=== PATIENT | female | born 1980 | race Caucasian/White ===

== ENCOUNTER 2017-03-28 17:43 | Emergency (ER) | payer BC ==
[~2017-03-28] VITALS: Ht 157.5 cm; Wt 90.9 kg
[~2017-03-28 17:43] MED LIST: MOTRIN 200200 MG/TAB PO; PEN-VEE K500 MG PO; TYLENOL EXTRA500 M1 PO
[2017-03-28 17:48] VITALS: TEMP 98.6
[2017-03-28] MEDS ORDERED: ABILIFY5 MG PO (17:50)
[2017-03-28] MEDS ORDERED: PAXIL40 MG PO (17:50)
[2017-03-28] MEDS ORDERED: CEFTIN 250250 MG/TAB PO (17:51)
[2017-03-28] MEDS ORDERED: PREDNISONE20 MG PO (19:30)
[2017-03-28 19:37] VITALS: BP 129/71; PULSE 85
== END 2017-03-28 19:38 | disposition home or self-care (01) ==
LOC: COL.ER 17:43
DX: J20.9 Acute bronchitis, unspecified (principal); R07.89 Other chest pain; F32.9 Major depressive disorder, single episode, unspecified; F41.9 Anxiety disorder, unspecified
CPT/HCPCS: J7512

== ENCOUNTER 2017-04-25 10:11 | Emergency (ER) | payer BC ==
[~2017-04-25] VITALS: Ht 157.5 cm; Wt 90.9 kg
[~2017-04-25 10:11] MED LIST changes: +ABILIFY5 MG PO; +CEFTIN 250250 MG/TAB PO; +PAXIL40 MG PO; +PREDNISONE20 MG PO
[2017-04-25 10:14] VITALS: BP 125/74; PULSE 81; TEMP 98.7
[2017-04-25] MEDS ORDERED: CEPHALEXIN500 M1 PO (10:40)
[2017-04-25] MEDS ORDERED: AMBIEN 10MG10 MG PO (11:06)
== END 2017-04-25 11:10 | disposition home or self-care (01) ==
LOC: COL.ER 10:11
DX: S00.81XA Abrasion of other part of head, initial encounter (principal); D22.39 Melanocytic nevi of other parts of face; X58.XXXA Exposure to other specified factors, initial encounter; F32.9 Major depressive disorder, single episode, unspecified; F41.9 Anxiety disorder, unspecified

== ENCOUNTER 2021-05-12 14:33 | Emergency (ER) | payer SELFPAY ==
[~2021-05-12 14:33] MED LIST changes: +AMBIEN 10MG10 MG PO; +CEPHALEXIN500 M1 PO
== END 2021-05-12 15:45 | disposition left against medical advice (07) ==
LOC: COL.ER 14:33
DX: R69 Illness, unspecified (principal)

== ENCOUNTER 2021-10-24 11:53 | Emergency (ER) | payer OTHER ==
[~2021-10-24] VITALS: Ht 157.5 cm; Wt 79.5 kg
[2021-10-24 12:08] VITALS: TEMP 98.6
[2021-10-24 12:50] LABS: BASO % 0.3 % (0.0-2.0); EOS % 0.5 % (0.0-4.0); GRAN # 6.5 K/mm3 (1.4-6.5); GRAN % 83.5 % (42.2-75.2); HEMATOCRIT 39.4 % (37.0-47.0); HEMOGLOBIN 13.9 g/dl (12.5-16.0); LYMPH # 0.9 K/mm3 (1.2-3.4); LYMPH % 11.8 % (20.0-51.0); MEAN CELL VOLUME 83 fl (80.0-100.0); MEAN CORPUSCULAR HEMOGLOBIN 29 pg (27-31); MEAN CORPUSCULAR HGB CONC 35 g/dl (33.0-37.0); MEAN PLATELET VOLUME 9.7 fl (7.4-10.4); MONO # 0.3 K/mm3 (0.1-0.6); MONO % 3.6 % (1.7-9.3); PLATELET COUNT 170 K/mm3 (130-400); RED BLOOD COUNT 4.77 M/mm3 (4.10-5.30); REDCELL DISTRIBUTION WIDTH-CV 13.1 % (11.5-14.5)
[2021-10-24 13:00] LABS: COLLECTION METHOD CLEAN CATCH
[2021-10-24 13:06] LABS: BILIRUBIN,TOTAL 0.5 mg/dL (0.2-1.2); CALCIUM 8.9 mg/dL (8.4-10.2); CREATININE, serum 0.91 mg/dL (0.57-1.11); POTASSIUM 4.4 mmol/L (3.5-4.5); TOTAL PROTEIN 6.5 gm/dL (6.2-8.1)
[2021-10-24 13:07] LABS: MUCOUS Present (NOT PRESENT); PH 5 (5-8); URINE APPEARANCE Hazy (CLEAR/HAZY); URINE BACTERIA Rare /hpf (NONE SEEN); URINE BILIRUBIN Negative (NEGATIVE); URINE BLOOD Negative (NEGATIVE); URINE COLOR Yellow (YELLOW); URINE GLUCOSE Negative (NEGATIVE); URINE KETONE Trace (NEGATIVE); URINE LEUKOCYTE ESTERASE Negative (NEGATIVE); URINE NITRATE Negative (NEGATIVE); URINE PROTEIN(semi-quant) 1+ (NEGATIVE); URINE RBC 0-2 /hpf (0-2); URINE UROBILINOGEN Negative (NEGATIVE)
[2021-10-24] MEDS ORDERED: ATIVAN 0.50.5 MG/TAB PO (14:35)
[2021-10-24 14:38] VITALS: BP 121/81; PULSE 101
== END 2021-10-24 14:47 | disposition home or self-care (01) ==
LOC: COL.ER 11:53
PROVIDERS: Student in an Organized Health Care Education/Training Program
DX: F41.9 Anxiety disorder, unspecified (principal); R00.0 Tachycardia, unspecified; E11.9 Type 2 diabetes mellitus without complications; F32.A Depression, unspecified; F17.290 Nicotine dependence, other tobacco product, uncomplicated; Z20.822 Contact with and (suspected) exposure to COVID-19; Z79.899 Other long term (current) drug therapy
CPT/HCPCS: J2060; J2405; J7030

== ENCOUNTER → 2021-10-27 | Outpatient (CLI) | payer OTHER ==
[~2021-10-27] MED LIST changes: +ATIVAN 0.50.5 MG/TAB PO
[2021-10-27 15:35] LABS: BASO % 0.2 % (0.0-2.0); EOS # 0.1 K/mm3 (0.0-0.7); EOS % 0.6 % (0.0-4.0); GRAN # 6.6 K/mm3 (1.4-6.5); GRAN % 81.2 % (42.2-75.2); HEMATOCRIT 41.1 % (37.0-47.0); HEMOGLOBIN 14.2 g/dl (12.5-16.0); LYMPH # 1.1 K/mm3 (1.2-3.4); LYMPH % 13.5 % (20.0-51.0); MEAN CELL VOLUME 84 fl (80.0-100.0); MEAN CORPUSCULAR HEMOGLOBIN 29 pg (27-31); MEAN CORPUSCULAR HGB CONC 35 g/dl (33.0-37.0); MEAN PLATELET VOLUME 9.4 fl (7.4-10.4); MONO # 0.3 K/mm3 (0.1-0.6); MONO % 4.1 % (1.7-9.3); PLATELET COUNT 178 K/mm3 (130-400); RED BLOOD COUNT 4.88 M/mm3 (4.10-5.30); REDCELL DISTRIBUTION WIDTH-CV 13.2 % (11.5-14.5)
[2021-10-27 15:49] LABS: ALBUMIN 3.8 gm/dL (3.5-5.0); BILIRUBIN,TOTAL 0.4 mg/dL (0.2-1.2); CALCIUM 9.2 mg/dL (8.4-10.2); CREATININE, serum 0.77 mg/dL (0.57-1.11); POTASSIUM 4.5 mmol/L (3.5-4.5)
[2021-10-27 16:11] LABS: TSH w REFLEX 0.637 uIU/mL (0.350-4.940)
== END ==
LOC: COL.LAB 15:07
PROVIDERS: Registered Nurse
DX: R00.0 Tachycardia, unspecified (principal); R29.898 Other symptoms and signs involving the musculoskeletal system; R41.840 Attention and concentration deficit

== ENCOUNTER 2022-03-26 22:11 | Emergency (ER) | payer OTHER ==
[~2022-03-26] VITALS: Ht 157.5 cm; Wt 77.3 kg
[2022-03-26] MEDS ORDERED: MOTRIN 800800 MG/TAB PO (23:32)
[2022-03-26 23:38] VITALS: BP 1122/87; PULSE 84; TEMP 98.3
== END 2022-03-26 23:38 | disposition home or self-care (01) ==
LOC: COL.ER 22:11
DX: S93.402A Sprain of unspecified ligament of left ankle, initial encounter (principal); X50.1XXA Overexertion from prolonged static or awkward postures, initial encounter; Y92.59 Other trade areas as the place of occurrence of the external cause; Y99.0 Civilian activity done for income or pay

== ENCOUNTER 2022-04-06 08:19 | Outpatient (RCR) | payer OTHER ==
[~2022-04-06 08:19] MED LIST changes: +MOTRIN 800800 MG/TAB PO
== END 2022-04-10 | disposition home or self-care (01) ==
LOC: WSOH
DX: S93.402A Sprain of unspecified ligament of left ankle, initial encounter (principal); Y99.0 Civilian activity done for income or pay; F41.8 Other specified anxiety disorders; E11.9 Type 2 diabetes mellitus without complications
CPT/HCPCS: 24091; 24774; A6549; L1810

== ENCOUNTER → 2022-05-11 | Outpatient (RCR) | payer OTHER | END | disposition home or self-care (01) | LOC: WSPT → WSOH 04-11 00:29 → WSPT 09:00 | DX: S93.402D Sprain of unspecified ligament of left ankle, subsequent encounter (principal); Y99.0 Civilian activity done for income or pay; F41.8 Other specified anxiety disorders; E11.9 Type 2 diabetes mellitus without complications ==

== ENCOUNTER 2023-01-11 20:02 | Emergency (ER) | payer OTHER ==
[~2023-01-11] VITALS: Ht 157.5 cm; Wt 77.7 kg
[2023-01-11 20:39] VITALS: TEMP 98.8
[2023-01-11 21:19] LABS: BASO % 0.3 % (0.0-2.0); EOS # 0.1 K/mm3 (0.0-0.7); EOS % 0.9 % (0.0-4.0); GRAN # 5.4 K/mm3 (1.4-6.5); GRAN % 72.8 % (42.2-75.2); HEMATOCRIT 41.1 % (37.0-47.0); HEMOGLOBIN 14.1 g/dl (12.5-16.0); LYMPH # 1.5 K/mm3 (1.2-3.4); LYMPH % 20.8 % (20.0-51.0); MEAN CELL VOLUME 82 fl (80.0-100.0); MEAN CORPUSCULAR HEMOGLOBIN 28 pg (27-31); MEAN CORPUSCULAR HGB CONC 34 g/dl (33.0-37.0); MEAN PLATELET VOLUME 10.3 fl (7.4-10.4); MONO # 0.4 K/mm3 (0.1-0.6); MONO % 4.9 % (1.7-9.3); PLATELET COUNT 154 K/mm3 (130-400); RED BLOOD COUNT 5.04 M/mm3 (4.10-5.30); REDCELL DISTRIBUTION WIDTH-CV 12.8 % (11.5-14.5)
[2023-01-11 21:31] LABS: ALBUMIN 3.8 gm/dL (3.5-5.0); BILIRUBIN,TOTAL 0.3 mg/dL (0.2-1.2); CALCIUM 9.7 mg/dL (8.4-10.2); CREATININE, serum 0.82 mg/dL (0.57-1.11); POTASSIUM 4.1 mmol/L (3.5-4.5)
[2023-01-11 23:08] VITALS: BP 142/87; PULSE 79
== END 2023-01-11 23:19 | disposition home or self-care (01) ==
LOC: COL.ER 20:02
PROVIDERS: Family Medicine
DX: E11.65 Type 2 diabetes mellitus with hyperglycemia (principal); J32.9 Chronic sinusitis, unspecified; Z28.310 Unvaccinated for COVID-19
CPT/HCPCS: J1815; J2405; J7120

== ENCOUNTER → 2023-08-09 | Outpatient (CLI) | payer BC | LOC: CANSCHCLI → MC.RAD 12:55 | DX: Z12.31 Encounter for screening mammogram for malignant neoplasm of breast (principal) ==

== ENCOUNTER 2023-10-03 11:36 | Emergency (ER) | payer BC ==
[~2023-10-03] VITALS: Ht 157.5 cm; Wt 79.1 kg
[2023-10-03 11:43] VITALS: TEMP 98.1
[2023-10-03] MEDS ORDERED: NS 1,000 ML IV ONE (12:00)
[2023-10-03] MEDS ORDERED: Insulin Regular Human (NovoLIN R/HumuLIN R) IV ONE (12:00)
[2023-10-03 12:17] LABS: BASO % 0.3 % (0.0-2.0); EOS # 0.1 K/mm3 (0.0-0.7); EOS % 0.9 % (0.0-4.0); GRAN % 74.3 % (42.2-75.2); HEMATOCRIT 38.6 % (37.0-47.0); HEMOGLOBIN 13.1 g/dl (12.5-16.0); LYMPH # 1.3 K/mm3 (1.2-3.4); LYMPH % 20.2 % (20.0-51.0); MEAN CELL VOLUME 83 fl (80.0-100.0); MEAN CORPUSCULAR HEMOGLOBIN 28 pg (27-31); MEAN CORPUSCULAR HGB CONC 34 g/dl (33.0-37.0); MEAN PLATELET VOLUME 10.1 fl (7.4-10.4); MONO # 0.3 K/mm3 (0.1-0.6); MONO % 3.8 % (1.7-9.3); PLATELET COUNT 182 K/mm3 (130-400); RED BLOOD COUNT 4.68 M/mm3 (4.10-5.30); REDCELL DISTRIBUTION WIDTH-CV 12.4 % (11.5-14.5)
[2023-10-03 12:28] LABS: ALBUMIN 3.6 gm/dL (3.5-5.0); BILIRUBIN,TOTAL 0.4 mg/dL (0.2-1.2); CALCIUM 9.3 mg/dL (8.4-10.2); CREATININE, serum 0.82 mg/dL (0.57-1.11); POTASSIUM 3.9 mmol/L (3.5-4.5); TOTAL PROTEIN 6.7 gm/dL (6.2-8.1)
[2023-10-03 13:58] VITALS: BP 132/86; PULSE 81
== END 2023-10-03 13:58 | disposition home or self-care (01) ==
LOC: COL.ER 11:36
PROVIDERS: Personal Emergency Response Attendant
DX: R73.9 Hyperglycemia, unspecified (principal); Z79.84 Long term (current) use of oral hypoglycemic drugs
CPT/HCPCS: J1815; J7030